=== PATIENT | male | born 1990 | race African-American/Black ===

== ENCOUNTER 2017-01-23 17:07 | Emergency (ER) | payer SELFPAY ==
[2017-01-23] MEDS ORDERED: Adacel (T-DAP) 0.5 ML VIAL ONE (17:13)
[2017-01-23] MEDS ORDERED: Lidocaine 1% w/Epinephrine 1:100K 20 ML VIAL ONE (17:15)
== END 2017-01-23 17:38 | disposition home or self-care (01) ==
LOC: NAV ERS 17:07
DX: S51.812A Laceration without foreign body of left forearm, initial encounter (principal); Z23 Encounter for immunization; W25.XXXA Contact with sharp glass, initial encounter; Y99.0 Civilian activity done for income or pay
CPT/HCPCS: 12001; 90471; 90715; J2001

== ENCOUNTER 2017-02-02 11:22 | Emergency (ER) | payer SELFPAY ==
[2017-02-02] MEDS ORDERED: Bacitracin Zinc 1 Packet ONE (11:34)
== END 2017-02-02 11:58 | disposition home or self-care (01) ==
LOC: NAV ERS 11:22
DX: S51.012D Laceration without foreign body of left elbow, subsequent encounter (principal)